=== PATIENT | male | born 1965 | race Caucasian/White ===

== ENCOUNTER 2025-04-13 19:24 | Emergency (ER) | payer BC, SELFPAY ==
[2025-04-13 19:56] VITALS: BP 149/92; PULSE 100; RESP 18; TEMP 36.6; O2SAT 99; BMI 46.2
--- NOTE | 2025-04-13 20:33 | HMH.EDGENADL ---
Discharge Plan Disposition Patient Disposition: Home, Self-Care Prescriptions Prescriptions: No Action lisinopril 10 mg Tablet 10 mg PO DAILY Ozempic 0.25 mg or 0.5 mg (2 mg/3 mL) Pen Injector 0.25 mg SQ WEEKLY atorvastatin 10 mg Tablet 10 mg PO DAILY bupropion HCl [Wellbutrin] 75 mg Tablet 75 mg PO DAILY Referrals Follow up/Referrals: Alberto Toure MD [Primary Care Provider, Medical] - See instructions Etienne Sharma DO [Staff Physician, Orthopedics] - See instructions Activity Restrictions/Add. Instructions Additional Instructions/Restrictions: Avoid bearing weight on your left leg until you are able to follow-up with the orthopedic team. You can wear the Ambrosio bandage to help with swelling and pain. You can take Tylenol and ibuprofen to help with discomfort. Elevate the leg above the level of the heart when laying down to help with swelling. If you develop any new or worsening symptoms, or if you become concerned for your health for any reason, return to the emergency department for evaluation. Clinical Impressions Clinical Impression: Injury of knee, left Print Language Print Language: Italian Discharge ED Provider: Remington De La Rosa General Adult HPI General Chief complaint: PAIN Stated complaint: Left Knee Popped/ light weight bearing Time Seen by Provider: 04/13/25 20:26 Mode of Arrival: Wheelchair Source of Information: Patient Description of Symptoms (Recalled from ER Triage Doc. by RN): Pt was at work around 1630 when he felt and heard a loud pop from his left knee. Pt states the pain is very intense and he can barely walk. History of Present Illness HPI narrative: Elias Jennings is a 59y male with a history of prediabetes who presents to the emergency department for complaints of left knee pain. Patient states over the weekend, he felt like his left knee was swollen and was somewhat painful but had improved some with Tylenol and ibuprofen. He states that today, while walking on a flat surface leaving work, he felt like his knee subluxed laterally and he felt a pop on the lateral aspect of his knee. He has had a significant pain mostly to the lateral aspect of his knee up into his thigh with bending the knee. He states that he can barely bear weight on the knee with standing. Related Data Home Medications ?Medication ?Instructions ?Recorded ?Confirmed atorvastatin 10 mg tablet 10 mg PO DAILY 04/13/25 04/13/25 bupropion HCl 75 mg tablet 75 mg PO DAILY 04/13/25 04/13/25 lisinopril 10 mg tablet 10 mg PO DAILY 04/13/25 04/13/25 semaglutide 0.25 mg or 0.5 mg (2 0.25 mg SQ WEEKLY 04/13/25 04/13/25 mg/3 mL) subcutaneous pen injector (Ozempic) Allergies Allergy/AdvReac Type Severity Reaction Status Date / Time No Known Allergies Allergy Verified 04/13/25 20:00 [facility] Disclaimer: The information contained in this section may have been updated after the patient was seen, as this information can be updated by other users. Social History Smoking Status: Never smoker alcohol intake: never current occupational status: employed Travel in the last 8 weeks?: None ROS Obtained: Yes Systems reviewed as appropriate & no additional complaints except as documented Physical Exam General General appearance: alert and in no apparent distress Head Head exam: atraumatic Eye Eye exam: Present normal appearance ENT ENT exam: Present normal external ear exam Neck Neck exam: Present full ROM Chest Chest inspection: Present symmetric chest wall rise Respiratory Respiratory exam: Absent respiratory distress Cardiovascular Cardiovascular exam: Present regular rate and normal rhythm Abdominal Exam Abdominal exam: Absent distention exam: Present deferred Expanded Lower Extremity Exam Left: Leg image:  1. Tenderness, mild swelling, limited ROM at the knee secondary to pain. Distal pulses intact. BLE 1+ pitting edema (patient states this is normal for him) Back Exam Back exam: Present normal inspection Neurological Exam Neurological exam: Present alert and oriented X3 Psychiatric Psychiatric exam: Present normal affect Skin Skin exam: Present warm and dry Medical Decision Making Medical Records Screening: Per USPSTF and CDC recommendations, given the prevalence of disease in our region, it is our hospital?s policy to screen for HIV and viral Hepatitis for all patients aged 18 and over and those with ongoing risk factors. Lucas Inquiry Pt receiving controlled substance: No Vital Signs: 04/13/25 19:56 04/13/25 22:01 Temperature 97.8 F 97.8 F Temperature Source Oral Oral Pulse Rate 100 H Pulse Rate [Right] 100 H Respiratory Rate 18 18 Blood Pressure 149/92 H Blood Pressure [Left Arm] 149/92 H Blood Pressure Mean [Left Arm] 111 Blood Pressure Source Automatic Cuff Blood Pressure Source [Left Arm] Automatic Cuff Blood Pressure Position Sitting Blood Pressure Position [Left Arm] Sitting 02 Sat by Pulse Oximetry 99 Oxygen Delivery Method Room Air Room Air Orders (Tests/Meds): ED MEDICATIONS Discontinued Medications Generic Name Dose Route Start Last Admin Trade Name Deyvi PRN Reason Stop Dose Admin Ketorolac Tromethamine 15 mg 04/13/25 20:33 04/13/25 20:43 Ketorolac 15mg/Ml Vial IM 04/13/25 20:34 15 mg ONCE ONE Administration ORDERS Category Date Time Status Knee XR left 2 views [XR knee LT 2V] Stat Exams 04/13/25 20:34 Completed Medical Decision Narrative: Tray Jennings is a 59y male with a history of prediabetes who presents to the emergency department for complaints of left knee pain. Patient states over the weekend, he felt like his left knee was swollen and was somewhat painful but had improved some with Tylenol and ibuprofen. He states that today, while walking on a flat surface leaving work, he felt like his knee gave out laterally and he felt a pop on the lateral aspect of his knee. He has had a significant pain mostly to the lateral aspect of his knee up into his thigh with bending the knee. He states that he can barely bear weight on the knee with standing. On arrival, patient is hemodynamically stable, in no acute distress, breathing comfortably on room air. Physical exam, stated above, revealed nontoxic-appearing male in no distress. He has some swelling to his left knee. He has tenderness mostly over the lateral aspect of the knee. Flexion at of the knee is limited secondary to pain. Distal pulses are intact. He does have 1+ pitting edema to his bilateral distal lower extremities, however he states that this is normal. Differential diagnosis includes, but is not limited to: Ligamentous injury, fracture, arthritis, among others. The most morbid conditions were considered and workup was based on these. Will obtain plain films of the left knee. Laboratory studies are not indicated at this time as patient's injury appears mechanical in nature and this would not change ED management. Patient was administered 15 mg of IM Toradol. X-ray imaging was interpreted by me personally. No acute fracture. Patient does have arthritic changes and a mild joint effusion. See radiology report for details. Due to location the patient's pain mechanism, I am concerned patient has a ligamentous injury and would benefit from orthopedic follow-up for possible MRI. Will place patient in Ambrosio bandage and provide crutches. Patient was instructed to avoid weightbearing on his left lower extremity until orthopedic follow-up. Return precautions were given. Patient was instructed to administer Tylenol, ibuprofen, ice/heat and to elevate the leg . All questions were answered. He demonstrated understanding and was in agreement this plan. He was then discharged from the emergency department in stable condition Critical Care Critical Care Time Critical Care Time: No
--- NOTE | 2025-04-13 20:34 | XR_ITS ---
PROCEDURE INFORMATION: Exam: XR Left Knee Exam date and time: 04/13/2025 8:45 PM Age: 59 years old Clinical indication: Pain; Knee; Left; Additional info: Lateral knee pain, felt pop TECHNIQUE: Imaging protocol: Radiologic exam of the left knee. Views: 1 or 2 views. Total images: 2 COMPARISON: No relevant prior studies available. FINDINGS: Bones/joints: No acute fracture or joint dislocation. No significant joint effusion, cannot exclude trace joint effusion. Mild tricompartment degenerative arthritis. Prominent enthesophytes on the patella and tibial tuberosity. No concerning bone lesions. Soft tissues: Unremarkable soft tissues. Vasculature: Medial varicosities. IMPRESSION: 1. No acute osseous abnormality. 2. Mild tricompartment degenerative arthritis. 3. Possible trace joint effusion.
--- OUTSIDE RECORDS SUMMARY | 2025-04-13 20:35 | XMS_ITS | Clinical Summary ---
Author Organization [facility] Address [address] [place] [address] Phone [email or web address] Care Team Providers Care Insurance Adjustor Name Role Phone Arlene Lemons Primary Care Provider [phone] Allergies No known active allergies Medications No known medications Active Problems No known active problems Social History Tobacco Use Types Packs/Day Years Used Date Smoking Tobacco: Never Smokeless Tobacco: Former Intimate Partner Violence Answer Date R ecorded Insults You Not on file 08/24/2020 Threatens You Not on file 08/24/2020 Screams at You Not on file 08/24/2020 Physically Hurt Not on file 08/24/2020 Intimate Partner Violence Score Not on file 08/24/2020 Stress Answer Date Recorded Stress in your Life Not on file 03/17/2024 Dealing with Stress 3 03/17/2024 Sex and Gender Information Value Date Recorded Sex Assigned at Not on file Legal Sex Male 7:59 AM CDT Gender Identity Not on file Sexual Orientation Not on file Last Filed Vital Signs Vital Sign Reading Time Taken Comments Blood Pressure 130/84 06/24/2019 6:20 PM EST Pulse 89 06/24/2019 6:20 PM EST Temperature 36 C (96.8 F) 06/06/2021 9:48 PM EST Respiratory Rate - - Oxygen Saturation 95% 06/24/2019 6:20 PM EST Inhaled Oxygen Concentration - - Weight 154 kg (340 lb) 06/24/2019 6:20 PM EST Height 185.4 cm (6' 1 ) 06/24/2019 6:20 PM EST Body Mass Index 44.86 06/24/2019 6:20 PM EST Plan of Treatment Health Maintenance Due Date Last Done Comments CT Colonography 1966 Colonoscopy 1966 Colorectal Cancer Screening Combo 1966 DNA Cologuard 1966 Dental Cleaning/Exam 1966 FIT or FOBT Test 1966 HIV Screening 1966 Hepatitis C Screening 1966 Sigmoidoscopy 1966 Hep B Infection Screening - Triple Screen 1984 Hepatitis B Immunization (1 of 3 - 19+ 3-dose series) 1985 Tetanus Diphtheria and Pertussis Immunization (1 - Tdap) 1985 Pneumococcal: 50+ Years (1 o f 1 - PCV) 2016 Zoster Immunization (1 of 2) 2016 Annual Preventive Exam 06/24/2020 0, 06/10/2018 Covid-19 Immunization (3 - 2024- season) 2025 09/01/2020, 08/07/2020 Influenza Immunization (#1) 2025 HIB Immunization Aged Out No longer e ligible based on patient's age to complete this topic HPV Immunization Aged Out No longer e ligible based on patient's age to complete this topic Hepatitis A Immunization Aged Out No longer eligible based on patient's age to complete this topic Polio Immunization Aged Out No longer eligible based on patient's age to complete this topic Insurance [facility] [id number] [place] [address] Care Teams Insurance Adjustor Relationship Specialty Start Date End Date Arlene Lemons [address] [place] [address] PCP - General Sanitation Manager 01/18/22
[2025-04-13] MEDS: KETOROLAC 15MG/ML VIAL 15 MG IM (20:43)
[2025-04-13 22:01] VITALS: BP 149/92; PULSE 100; RESP 18; TEMP 36.6; O2SAT 99
== END 2025-04-13 22:05 | disposition home or self-care (01) ==
PROVIDERS: Emergency Provider Student in an Organized Health Care Education/Training Program; PCP Emergency Medicine
DX: S89.92XA Unspecified injury of left lower leg, initial encounter (principal); X50.9XXA Other and unspecified overexertion or strenuous movements or postures, initial encounter; Y93.01 Activity, walking, marching and hiking; Z79.899 Other long term (current) drug therapy
CPT/HCPCS: 73560; 96372; 99283; 99284; J1885